=== PATIENT | female | born 1985 | race Two or more races ===

== ENCOUNTER → 2017-02-27 | Outpatient (CLI) | payer OTHER ==
--- NOTE | 2017-02-28 13:08 | RADRPT ---
PROCEDURE: Left knee radiographs. CLINICAL INDICATION: Left knee pain. TECHNIQUE: Four views. Weight bearing. Frontal, lateral, oblique, and patellar view. COMPARISON: No prior studies are available for comparison. FINDINGS: There is no fracture or dislocation. The soft tissues are normal. Articular surfaces are intact. There is no lytic or blastic lesion. There is no radiopaque foreign body. IMPRESSION: 1. Normal images of the left knee. RPTAT: QQ .Andreas Montgomery MD, MD Date Time Electronically viewed and signed by .Andreas Montgomery MD, MD on 02/28/2017 13:07 .R/
--- NOTE | 2017-03-01 06:47 | HKNOTE ---
DATE OF SERVICE: 02/27/2017 CHIEF COMPLAINT: Left knee pain. HISTORY OF PRESENT ILLNESS: This is a 31-year-old female complaining of left knee pain over the last several months. She denies any history of trauma. She denies any locking, catching, or instability. She has not had any previous treatment. She does not use any assistive devices or braces. She does not take any pain medications. She does not have any groin or back pain. Gait nonantalgic. Reciprocal gait pattern. Left knee neutral alignment and nontender over the medial and lateral joint line ; 0 to 130 degrees range of motion and stable to varus-valgus stress. Negative Emelina. Negative anterior drawer. Negative posterior drawer. Motor strength 5/5 quadriceps, hamstrings, tibialis anterior, gastrocsoleus. X-RAYS: Left knee, 4 views: X-rays taken in the office demonstrated no abnormalities. MRI: Left knee: MRI of the left knee demonstrates no abnormalities. IMPRESSION: A 31-year-old female with a left knee strain. PLAN: She was instructed on home exercises. She can take ibuprofen for pain control. She will follow up as needed. Dictated By: JOSHUA COFFMAN/GRANT Conf#: [id number] DID#: [id number]
== END | disposition home or self-care (01) ==
LOC: HKI 15:15
PROVIDERS: ATTEND Orthopaedic Surgery Adult Reconstructive Orthopaedic Surgery
DX: S86.912A Strain of unspecified muscle(s) and tendon(s) at lower leg level, left leg, initial encounter (principal); X58.XXXA Exposure to other specified factors, initial encounter
CPT/HCPCS: 73564; Z7500; G0463